=== PATIENT | female | born 1945 | race Caucasian/White ===

== ENCOUNTER 2017-03-27 11:35 | Emergency (ER) | payer SELFPAY ==
[2017-03-27 11:47] LABS: BASOPHILS 0.5 % (0.0-2.0); EOSINOPHILS 0.6 % (0.0-6.0); HEMATOCRIT 35.2 % (36.0-48.0); HEMOGLOBIN 11.4 g/dL (12.0-16.0); LYMPHOCYTES 27.5 % (20.0-40.0); LYMPHOCYTES# 2.1 X 10^3uL (0.8-3.8); MEAN CELL VOLUME 85.8 fL (80.0-100.0); MEAN CORPUS. HGB CONCENTRATION 32.4 g/dL (32.0-36.0); MEAN CORPUSCULAR HEMOGLOBIN 27.8 pg (29.0-35.0); MEAN PLATELET VOLUME 8.8 fL (7.4-10.4); MONOCYTES# 0.7 X 10^3uL (0.2-1.0); NEUTROPHILS 62.4 % (54.0-75.0); NEUTROPHILS# 4.8 X 10^3uL (2.6-6.7); PLATELET COUNT 305 X 10^3uL (130-440); RED CELL DISTRIBUTION WIDTH 13.7 % (11.5-14.5); WHITE BLOOD COUNT 7.6 X 10^3uL (3.9-10.7)
[2017-03-27 11:59] LABS: BLOOD UREA NITROGEN 14 mg/dL (7-17); CALCIUM 10.1 mg/dL (8.4-10.2); CHLORIDE 107 mmol/L (98-107); EST GLOMERULAR FILTRATION RATE > 60 mL/min; GLUCOSE 109 mg/dL (70-100); MAGNESIUM 2.1 mg/dL (1.6-2.3); POTASSIUM 3.9 mmol/L (3.5-5.1); SODIUM 144 mmol/L (137-145)
[2017-03-27 12:12] LABS: TROPONIN I < 0.012 ng/mL (0.00-0.034)
--- NOTE | 2017-03-27 12:20 | RADIOLOGY REPORT ---
History: Chest pain. Comparison: None. Technique: PA and lateral chest radiographs. Findings: The lungs are adequately inflated and clear. The cardiomediastinal silhouette and pulmonary vasculatu re are within normal limits for age. No pleural fluid, pneumothorax, or free air. No significant osse ous abnormality. Impression: Negative chest. Final Electronic Signature: This report was electronically signed by Yung Ramos MD on 03/27/2017 1 2:18 PM. [email or web address] /
--- NOTE | 2017-03-27 14:30 | ER PHYSICIAN DOCUMENTATION ---
Physician Documentation [facility] Name:Kathryn Shelby Age:72 yrs Sex:Female :1945 Arrival Date:03/27/2017 Time:11:35 BedTrauma-B Private MD: Jayson Puckett Disposition: 03/27 14:00 Critical Care: not applicable. tl1 15:00 Chart complete. tl1 Disposition: 03/27/17 13:38 Discharged to Home/Self Care. Impression: Dyspnea, CHF (Congestive Heart Failure). - Condition is Good. - Discharge Instructions: CHF, General, DYSPNEA. - Prescriptions for acetazolamide 250 mg Oral tablet - take 1 tablet by ORAL route 2 times per day; 20 tablet. - Medical Reconciliation form form. - Follow up: Private Physician; When: 7 - 10 days; Reason: Recheck today's complaints, Continuance of care. - Problem is new. - Symptoms have improved. HPI: 11:37 This 71 yrs old Female presents to ER with complaints of Chest Pain > 30 y/o. tl1 11:40 She left home in [place] about 3 weeks ago and has been travelling around the [address] by car and plane. She was well until about 4 days ago in [place], when she first noted some mild dyspnea in [facility]. 2 days ago she drove here, from there, and noted increasing dyspnea on arrival in [place] at that time. Since then she has had progressive dyspnea. No Chest pain, unilateral leg swelling, hemoptysis, f/c/s. Both legs seem symmetrically slightly more swollen than usual. She does have a h/o intermittent A fib, for which she takes Eliquis, but denies any h/o CHF.. Historical: - Allergies: No known drug Allergies; - Home Meds: 1. ELAQUIS 2. Omeprazole Oral 3. Lipitor Oral 4. bisoprolol-hydrochlorothiazide oral - PMHx: ATRIAL FIB; GERD; - Tetanus: unknown. - Ebola Screening: : Patient reports travel to an Ebola-affected area in the 21 days before illness onset. Patient reports to have traveled to . - Immunization history: Flu Vaccine unknown. - Social history: Smoking status: Patient states was never smoker of tobacco. ROS: 11:45 Cardiovascular: Positive for edema, Negative for chest pain, orthopnea, palpitations, tl1 paroxysmal nocturnal dyspnea. 11:45 Respiratory: Positive for shortness of breath, Negative for cough, hemoptysis, orthopnea, pleurisy, sputum production, wheezing. 11:45 Abdomen/GI: Negative for abdominal pain, nausea, vomiting, diarrhea. 11:45 Neuro: Negative for headache, weakness, acute changes. 11:45 All other systems are negative. Exam: 11:45 Constitutional: This is a well developed, well nourished patient who is awake, alert, tl1 and in no acute distress. Head/Face: Normocephalic, atraumatic. Eyes: Pupils equal round and reactive to light, extra-ocular motions intact. Lids and lashes normal. Conjunctiva and sclera are non-icteric and not injected. Cornea within normal limits. Periorbital areas with no swelling, redness, or edema. ENT: Nares patent. No nasal discharge, no septal abnormalities noted. Tympanic membranes are normal and external auditory canals are clear. Oropharynx with no redness, swelling, or masses, exudates, or evidence of obstruction, uvula midline. Mucous membranes moist. 11:45 Neck: Trachea midline, no thyromegaly or masses palpated, and no cervical tl1 lymphadenopathy. Supple, full range of motion without nuchal rigidity, or vertebral point tenderness. No Meningismus. 11:45 Cardiovascular: Rate: normal, Rhythm: regular, Heart sounds: normal, Edema: 1+ edema to level of left midcalf and right midcalf. 11:45 Respiratory: the patient does not display signs of respiratory distress, Respirations: normal, Breath sounds: are normal, clear throughout, no decreased breath sounds, no rales, rhonchi, no stridor, no wheezing. 11:45 Abdomen/GI: Palpation: abdomen is soft and non-tender. 11:45 : CVA tenderness, is absent. 11:45 Skin: Exam negative for acute changes. 11:45 Neuro: Orientation: is normal, Mentation: is normal, Cranial nerves: grossly normal, Motor: moves all fours. 11:45 Psych: Behavior/mood is pleasant, cooperative, Affect is calm, Oriented to person, place, time, Judgement / Insight is normal. Vital Signs: 11:34 BP 147 / 65 (auto/); arc 11:37 BP 147 / 65; Pulse 79; Resp 24; Temp 98.0(O); Pulse Ox 95% on R/A; Weight 85.28 kg; sj Height 5 ft. 9 in. (175.26 cm); Pain 5/10; 11:38 Pulse 83 MON; Resp 27; Pulse Ox 91% ; arc 11:43 Pulse 75 MON; Resp 22; Pulse Ox 96% ; lc 12:08 Pulse Ox 100% ; arc 12:11 BP 130 / 70; Pulse 72; Resp 12; Pulse Ox 99% on 2 lpm NC; Pain 2/10; lc 12:11 BP 130 / 70 (auto/); arc 12:28 Pulse 66 MON; Resp 18; Pulse Ox 100% ; arc 12:30 BP 124 / 66 (auto/); arc 12:58 Pulse 64 MON; Resp 13; Pulse Ox 99% ; arc 13:00 BP 125 / 68 (auto/); arc 13:08 Pulse 65 MON; Resp 21; Pulse Ox 100% ; arc 13:13 Pulse 64 MON; Resp 19; arc 13:34 Pain 1/10; sj 14:19 BP 142 / 78; Pulse 73; Resp 16; Pulse Ox 89% on R/A; arc 14:27 Resp 16; Pulse Ox 92% on R/A; Pain 0/10; lc 11:37 Body Mass Index 27.76 (85.28 kg, 175.26 cm) sj MDM: 11:37 Patient medically screened. tl1 11:59 Response to treatment: There is no appreciated change of the patient's symptoms at this tl1 time, and as a result, I will discharge patient. ED course: No change in her mild symptoms. I told her I thought she could have a touch of CHF, and some effects from the altitude, even, perhaps a touch of altitude sickness. I recommended staying at this altitude and trying some acetazolamide. She was happy with this as she wanted to get on with her vacation with her friends. She was discharged in satisfactory condition, with instructions to return here for any worsening.. 12:07 EKG attached sj 14:00 Differential diagnosis: acute myocardial infarction, acute pericarditis, anxiety, tl1 coronary artery disease congestive heart failure myocarditis, pericarditis, pleurisy, pneumonia, pulmonary embolus, stable angina, unstable angina. The patient was not given aspirin in the Emergency Department. The patient's deep vein thrombosis risk score was calculated as follows:. The patient's pulmonary embolism risk score was calculated as follows: Total Score: 0-2 points. This patient was found to be at low risk for a pulmonary embolism by using the Well's assessment criteria. CHELLY Risk Score: 1 - patient's age is greater or equal to 65 years, TOTAL SCORE = 1. Data reviewed: vital signs, nurses notes, lab test result(s), cardiac enzymes, CBC, electrolytes, hepatic panel, urinalysis, EKG, and as a result, I will discharge patient. 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 Test interpretation: by ED physician or midlevel provider: plain radiologic studies, ECG. Counseling: I had a detailed discussion with the patient and/or guardian regarding: the historical points, exam findings, and any diagnostic results supporting the discharge/admit diagnosis, lab results, radiology results, the need for outpatient follow up, to return to the emergency department if symptoms worsen or persist or if there are any questions or concerns that arise at home. ECG:. 14:18 EKG attached 03/27 12:03 Order name: CBC AUTO DIF, MDIF/RMOR IF IND; Complete Time: 13:37 EDNJ 03/27 13:35 Interpretation: WHITE BLOOD COUNT 7.6; HEMOGLOBIN 11.4; HEMATOCRIT 35.2; PLATELET COUNT tl1 305. 03/27 12:04 Order name: BASIC METABOLIC PANEL; Complete Time: 13:37 EDNJ 03/27 13:35 Interpretation: SODIUM 144; POTASSIUM 3.9; CHLORIDE 107; CARBON DIOXIDE 27; GLUCOSE tl1 109; BLOOD UREA NITROGEN 14; CREATININE 0.8; EST GLOMERULAR FILTRATION RATE > 60; CALCIUM 10.1. 03/27 12:04 Order name: MAGNESIUM; Complete Time: 13:37 EDNJ 03/27 13:35 Interpretation: Normal: MAGNESIUM 2.1. [facility] 03/27 12:07 Order name: DDIMER; Complete Time: 12:18 EDNJ 03/27 13:36 Interpretation: Normal: DDIMER 266. [facility] 03/27 12:13 Order name: BNP,NT-PRO; Complete Time: 13:37 EDNJ 03/27 13:36 Interpretation: Abnormal: BNP,NT-PRO 483. [facility] 03/27 12:13 Order name: TROPONIN I; Complete Time: 13:37 EDNJ 03/27 13:36 Interpretation: Normal: TROPONIN I < 0.012. 1 03/27 12:23 Order name: CXR 2V [id number]; Complete Time: 13:37 EDMS 03/27 13:36 Interpretation: Normal. 1 03/27 11:48 Order name: EKG - 12 Lead; Complete Time: 11:53 [facility] 03/27 11:53 Order name: Oxygen; Complete Time: 14:25 03/27 11:53 Order name: Oxygen Sats; Complete Time: 14:25 03/27 11:53 Order name: Cardiac Monitoring - Continuous; Complete Time: 14:25 EC:59 Rate is 72 beats/min. Rhythm is regular, Normal Sinus Rhythm. QRS [place] is Normal. [place] t[place] [address] msec. QT interval is normal at 394 msec. No Q waves. T waves are Normal. No ST changes noted. Clinical impression: Normal ECG. Interpreted by me. Reviewed by me. Dispensed Medications: No medications were administered Signatures: Dawna Guevara RN RN lc Leigh, Tom, MD MD tl1 [facility]
--- NOTE | 2017-03-27 14:30 | ER NURSING DOCUMENTATION ---
Nurse's Notes [facility] Name:Kathryn Shelby Age:72 yrs Sex:Female :1945 Arrival Date:03/27/2017 Time:11:35 BedTrauma-B Private MD: Diagnosis:Dyspnea;CHF (Congestive Heart Failure) Presentation: 03/27 11:37 Acuity: YESSICA 2 sj 11:41 Presenting complaint: EMS states: SINCE ARRIVAL 3 DAYS AGO, C/O CHEST PRESSURE WITH lc SOB. NO N/V, SWEATING. EDEMA TO LEGS SINCE ARRIVAL ALSO. Transition of care: patient was not received from another setting of care. AIR CAT ACTIVATION no other NA. Asprin Given n/a. Notified ED Physician of patient's arrival and CC. 11:41 Method Of Arrival: EMS: 410 lc Triage Assessment: 11:46 General: Appears in no apparent distress, well groomed, Behavior is appropriate for lc age, cooperative. Pain: Complains of pain in xyphoid area and mid-sternal area Pain does not radiate. Pain At worst was 4 out of 10 on a pain scale. Quality of pain is described as dull, pressure, Pain began 2-3 days ago. Neuro: Level of Consciousness is awake, alert, Oriented to person, place, time, event, Speech is normal. Cardiovascular: Capillary refill < 3 seconds Rhythm is sinus rhythm. Respiratory: Airway is patent Respiratory effort is even, unlabored, Breath sounds are clear bilaterally. GI: Abdomen is non- distended Abd is soft and non tender X 4 quads. Derm: Skin is pink, warm & dry. Historical: - Allergies: No known drug Allergies; - Home Meds: 1. ELAQUIS 2. Omeprazole Oral 3. Lipitor Oral 4. bisoprolol-hydrochlorothiazide oral - PMHx: ATRIAL FIB; GERD; - Tetanus: unknown. - Ebola Screening: : Patient reports travel to an Ebola-affected area in the 21 days before illness onset. Patient reports to have traveled to . - Immunization history: Flu Vaccine unknown. - Social history: Smoking status: Patient states was never smoker of tobacco. Screenin:50 Infectious Disease Risk None. Abuse screen: Denies threats or abuse. Denies injuries lc from another. Nutritional screening: No deficits noted. Assessment: 11:49 See Triage Assessment done by same RN. Pain: Complains of pain in mid-sternal area and lc xyphoid area Pain currently is 4 out of 10 on a pain scale. 12:08 Reassessment: FIRST EKG DONE AT 11:37, NO COPY AVAILABLE, REPEATED. FEELS BETTER ON O2, lc MONITOR IN NSR, VSS. 12:12 Cardiovascular: 2 + EDEMA TO BOTH LEGS. lc 14:26 Reassessment: Patient states feeling better. Patient states symptoms have improved. lc Patient appears in no apparent distress at this time. FEELS READY FOR DC, MONITOR IN NSR DURING ENTIRE ED VISIT. Vital Signs: 11:34 BP 147 / 65 (auto/); arc 11:37 BP 147 / 65; Pulse 79; Resp 24; Temp 98.0(O); Pulse Ox 95% on R/A; Weight 85.28 kg; sj Height 5 ft. 9 in. (175.26 cm); Pain 5/10; 11:38 Pulse 83 MON; Resp 27; Pulse Ox 91% ; arc 11:43 Pulse 75 MON; Resp 22; Pulse Ox 96% ; lc 12:08 Pulse Ox 100% ; arc 12:11 BP 130 / 70; Pulse 72; Resp 12; Pulse Ox 99% on 2 lpm NC; Pain 2/10; lc 12:11 BP 130 / 70 (auto/); arc 12:28 Pulse 66 MON; Resp 18; Pulse Ox 100% ; arc 12:30 BP 124 / 66 (auto/); arc 12:58 Pulse 64 MON; Resp 13; Pulse Ox 99% ; arc 13:00 BP 125 / 68 (auto/); arc 13:08 Pulse 65 MON; Resp 21; Pulse Ox 100% ; arc 13:13 Pulse 64 MON; Resp 19; arc 13:34 Pain 1/10; sj 14:19 BP 142 / 78; Pulse 73; Resp 16; Pulse Ox 89% on R/A; arc 14:27 Resp 16; Pulse Ox 92% on R/A; Pain 0/10; lc 11:37 Body Mass Index 27.76 (85.28 kg, 175.26 cm) ED Course: 11:36 Patient arrived in ED. arc 11:37 Triage completed. sj 11:37 Jayson Jackson MD is Attending Physician. tl1 11:39 Dawna Guevara RN is Primary Nurse. lc 11:50 Valuables Remains with patient Patient has correct armband on for positive lc identification. Placed in gown. Bed in low position. Call light in reach. Side rails up X2. supervisor shipping room on. Pulse ox on. NIBP on. 11:50 Maintain field IV. Dressing intact. Good blood return noted. Site clean & dry. Gauge & lc site: 20G TO R HAND. Oxygen Oxygen administration via nasal cannula @ 2L/min. 11:51 Labs drawn. (by ED staff). Sent per order to lab. 11:59 EKG done. (by ED staff). Reviewed by Jayson Jackson MD. lc 12:00 Patient moved to radiology. justo 12:00 Patient moved back from radiology. justo 12:07 EKG attached sj 14:18 EKG attached sj 14:20 Discontinued IV. arc Administered Medications: No medications were administered Outcome: 13:38 Discharge ordered by . tl1 14:27 Discharged to home ambulatory, with friend. 14:27 Condition: stable 14:27 Discharge Assessment: Patient awake, alert and oriented x 3. No cognitive and/or functional deficits noted. Patient verbalized understanding of disposition instructions. 14:27 Discharge instructions given to patient, Instructed on discharge instructions, follow up and referral plans. medication usage, Demonstrated understanding of instructions, medications, Prescriptions given X 1, FX'D TO PHARMACY 14:29 Patient left the ED. lc Signatures: Dawna Guevara, Carol Branch RN, Philisha 1 Jayson Jackson MD MD tl1 Rita Hernandez, Reg Qing Hollins
== END 2017-03-27 14:29 | disposition home or self-care (01) ==
LOC: EDBD → ER 11:35
DX: R06.00 Dyspnea, unspecified (principal); I50.20 Unspecified systolic (congestive) heart failure; R60.0 Localized edema; R06.02 Shortness of breath; I48.0 Paroxysmal atrial fibrillation; Z79.01 Long term (current) use of anticoagulants; Z79.899 Other long term (current) drug therapy; Z99.89 Dependence on other enabling machines and devices; Z74.3 Need for continuous supervision
CPT/HCPCS: 71020; 80048; 83735; 83880; 84484; 85025; 85379; 93005; 99285; A0425; A0427

== ENCOUNTER 2017-03-27 17:48 | Emergency (ER) | payer SELFPAY ==
[2017-03-27] MEDS ORDERED: ONDANSETRON HCL 4 MG/2 ML VIAL ONE (19:23)
[2017-03-27] MEDS ORDERED: ACETAMINOPHEN 325 MG TABLET PO ONE (19:38)
--- NOTE | 2017-03-27 20:04 | ER PHYSICIAN DOCUMENTATION ---
Physician Documentation [facility] Name:Kathryn Shelby Age:72 yrs Sex:Female :1945 Arrival Date:03/27/2017 Time:17:48 Bed4 Private MD: Jayson Puckett Disposition: 03/27 20:24 Critical Care: not applicable. Chart complete. tl1 Disposition: 03/27/17 18:48 Transfer ordered to [facility]. Diagnosis are Dyspnea, Chest Pain. - Reason for transfer: Higher level of care. - Accepting physician is Teofilo Rapp. - Condition is Good. - Problem is new. - Symptoms are unchanged. COBRA Form completed? Yes Transfer - Mode of Transportation Ambulance HPI: 17:55 This 72 yrs old Female presents to ER via Private Vehicle with complaints of tl1 Shortness Of Breath. 17:55 She was d/c'd from here today about 1430. She presented about noon with dyspnea and a tl1 vague chest discomfort. I thought she might have just a bit of CHF, +/- some altitude illness and prescribed diamox. See her prior chart for details. She returns now to the ED complaining of shaking chills, with some anxiety and dyspnea, without subsequent sweats, that came on abruptly about 45 min after taking her diamox. She felt quite ill with that and now returns for evaluation. She denies cough. She felt warm, but has not taken her temperature. She now relates multiple periods of intermittent chest pressure, associated at times with a vague left shoulder discomfort, that have been worth with exertion and some lasting as long as 30 minutes, over the last 4-5 days. No foreign travel. No risk. factors for PE except for long trips in cars and planes over the last several weeks.. Historical: - Allergies: No known drug Allergies; - Home Meds: 1. ELAQUIS 2. Omeprazole Oral 3. Lipitor Oral 4. bisoprolol-hydrochlorothiazide oral - PMHx: ATRIAL FIB; GERD; Dyspnea (March 27, 2017); CHF (Congestive Heart Failure)(March 27, 2017); - PSHx: Hysterectomy; Cholecysectomy; - Tetanus: < 10 years. - Ebola Screening: : No symptoms or risks identified at this time. . - Immunization history: Pneumococcal vaccine is up to date, Flu Vaccine < 1 year. - Social history: Smoking status: Patient states was never smoker of tobacco. ROS: 18:30 Respiratory: Positive for shortness of breath, Negative for cough, dyspnea on exertion, tl1 hemoptysis, orthopnea, pleurisy, sputum production, wheezing. 18:30 All other systems are negative. Exam: 18:30 Constitutional: The patient appears in no acute distress, alert, awake, well developed, tl1 well hydrated, well groomed, well nourished, in obvious distress, mildly distressed, feeling chilled, covered up in multiple blankets. 18:30 Head/face: Exam is negative for acute changes. 18:30 Eyes: Exam is negative for acute changes, Pupils: equal, round, and reactive to light and accomodation. 18:30 ENT: Exam is negative for acute changes. 18:30 Neck: ROM/movement: is normal, is supple. 18:30 Cardiovascular: Rate: tachycardic, Rhythm: regular, Heart sounds: normal, Edema: 1+ edema to level of left midcalf and right midcalf, JVD: is not appreciated. 18:30 Respiratory: the patient does not display signs of respiratory distress, Respirations: normal, Breath sounds: are normal, no decreased breath sounds, no rales, rhonchi, no stridor, no wheezing. 18:30 Abdomen/GI: Inspection: abdomen appears normal, Palpation: abdomen is soft and non-tender. 18:30 : CVA tenderness, is absent. 18:30 Skin: Exam negative for 18:30 Neuro: Exam negative for acute changes. Vital Signs: 17:55 BP 161 / 78; Pulse 110; Resp 24; Temp 98.5(O); Pulse Ox 87% on 2 lpm NC; Weight 68.04 arc kg; Height 5 ft. 9 in. (175.26 cm) (R); 18:55 BP 158 / 70; Pulse 103; Resp 18; Pulse Ox 97% on 2 lpm NC; Pain 0/10; lc 19:20 BP 130 / 56; Pulse 100; Resp 18; Temp 102; Pulse Ox 91% on 2 lpm NC; Pain 0/10; lc 17:55 Body Mass Index 22.15 (68.04 kg, 175.26 cm) arc MDM: 17:54 Patient medically screened. tl1 18:31 Response to treatment: There is no appreciated change of the patient's symptoms at this tl1 time, and as a result, I will admit patient. Physician consultation: Teofilo Rapp was called at 18:40, was contacted at 18:45, regarding patient's condition, after a discussion of the case, a recommendation for transfer for higher level of care is made. Special discussion: this is her second visit here today, and she feels worse, with worsening vital signs. I was initially concerned about the possibility of an ACS, but this is starting to look more infectious. I told her I thought she needed to be admitted to a hospital where she can get a higher level of care, and more sophisticated testing than we can offer her here. I spoke with Dr Rapp, at [facility], who kindly accepted her in transfer for further evaluation.. ED course: She is hypoxic now, tachycardic,and febrile, which she was not, earlier. Blood cultures were done. Troponin was repeated and negative. Flu swab was negative.. 19:00 Differential diagnosis: Anxiety Reaction CHF exacerbation, Myocardial Infarction tl1 pneumonia, pulmonary edema, Pulmonary Embolism Sepsis. Antibiotic administration: Not indicated. The patient's pulmonary embolism risk score was calculated as follows: No Risks (0 Pts). Data reviewed: vital signs, nurses notes, lab test result(s), cardiac enzymes, flu swab, troponin, EKG, and as a result, I will *Transfer Patient. 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 Test interpretation: by ED physician or midlevel provider: ECG. Counseling: I had a detailed discussion with the patient and/or guardian regarding: the historical points, exam findings, and any diagnostic results supporting the discharge/admit diagnosis, lab results, radiology results, the need to transfer to another facility, for higher level of care. ECG:. 03/27 19:15 Order name: TROPONIN I [facility] 03/27 20:08 Order name: INFLUENZA A/B [facility] 03/28 19:56 Order name: BLOOD CULTURE [facility] 03/28 19:56 Order name: BLOOD CULTURE [facility] 03/27 18:04 Order name: Oxygen; Complete Time: 18:04 lc EC:31 Rate is 99 beats/min. Rhythm is regular, Normal Sinus Rhythm. QRS [place] is Normal. QRS tl1 is positive in leads I, II, aVL, aVF, V5, V6. MT interval is normal at 202 msec. QRS interval is normal at 77 msec. QT interval is normal at 348 msec. No Q waves. T waves are Normal. No ST changes noted. Clinical impression: Normal ECG. Interpreted by me. Reviewed by me. Dispensed Medications: 19:25 Drug: Tylenol 975 mg; Route: PO; lc 19:49 Follow up: Response: No adverse reaction lc Signatures: Dawna Guevara RN RN Jayson Cho MD MD tl1
--- NOTE | 2017-03-27 20:04 | ER NURSING DOCUMENTATION ---
Nurse's Notes [facility] Name:Kathryn Shelby Age:72 yrs Sex:Female :1945 Arrival Date:03/27/2017 Time:17:48 Bed4 Private MD: Diagnosis:Dyspnea;Chest Pain Presentation: 03/27 17:58 Presenting complaint: Patient states: SEEN EARLIER IN ED. WENT HOME AND TOOK A DIAMOX, lc 1 HR LATER C/O SHAKING, CHILLS AND SOB. NO CHEST PAIN. Transition of care: patient was not received from another setting of care. Notified ED Physician of patient's arrival and CC. 17:58 Acuity: YESSICA 3 lc 17:58 Method Of Arrival: Private Vehicle Triage Assessment: 18:00 General: Appears distressed, Behavior is anxious, cooperative. Pain: Denies pain. lc Neuro: Level of Consciousness is awake, alert, Oriented to person, place, time, event. Cardiovascular: Rhythm is sinus rhythm. Respiratory: Airway is patent Respiratory effort is even, unlabored, Respiratory pattern is regular, symmetrical, Breath sounds are diminished bilaterally. Reports shortness of breath air hunger since 1 HR Onset: The symptoms/episode began/occurred just prior to arrival, the patient has moderate shortness of breath. Derm: Skin is pink, warm & dry. Historical: - Allergies: No known drug Allergies; - Home Meds: 1. ELAQUIS 2. Omeprazole Oral 3. Lipitor Oral 4. bisoprolol-hydrochlorothiazide oral - PMHx: ATRIAL FIB; GERD; Dyspnea (March 27, 2017); CHF (Congestive Heart Failure)(March 27, 2017); - PSHx: Hysterectomy; Cholecysectomy; - Tetanus: < 10 years. - Ebola Screening: : No symptoms or risks identified at this time. . - Immunization history: Pneumococcal vaccine is up to date, Flu Vaccine < 1 year. - Social history: Smoking status: Patient states was never smoker of tobacco. Screenin:03 Infectious Disease Risk None. Abuse screen: Denies threats or abuse. Denies injuries lc from another. Nutritional screening: No deficits noted. Assessment: 18:03 See Triage Assessment done by same RN. lc 18:57 Reassessment: Patient denies pain at this time. Patient states feeling better. Patient lc appears in no apparent distress at this time. DECISION MADE FOR TRANSFER, ARRANGED, FRIENDS AT BEDSIDE. 19:29 Reassessment: GOT UP TO BR, NO DYSURIA SYMPTOMS, C/O SEVERE CHILLS, TEMP NOW 102, MD johns NOTIFIED, MEDICATED AND BLOOD CULTURES DRAWN. READY FOR TRANSFER NOW.. Vital Signs: 17:55 BP 161 / 78; Pulse 110; Resp 24; Temp 98.5(O); Pulse Ox 87% on 2 lpm NC; Weight 68.04 arc kg; Height 5 ft. 9 in. (175.26 cm) (R); 18:55 BP 158 / 70; Pulse 103; Resp 18; Pulse Ox 97% on 2 lpm NC; Pain 0/10; lc 19:20 BP 130 / 56; Pulse 100; Resp 18; Temp 102; Pulse Ox 91% on 2 lpm NC; Pain 0/10; lc 17:55 Body Mass Index 22.15 (68.04 kg, 175.26 cm) arc ED Course: 17:51 Patient arrived in ED. jt 17:54 Jayson Jackson MD is Attending Physician. tl1 17:57 Dawna Guevara, BARRY is Primary Nurse. lc 17:59 Triage completed. lc 18:03 Valuables Remains with patient Patient has correct armband on for positive lc identification. Placed in gown. Bed in low position. Call light in reach. Cardiac Monitoring On for Nurse Monitoring only. Pulse Ox - RN Monitoring Only NIBP On - RN Monitoring Only. 18:04 Oxygen Oxygen administration via nasal cannula @ 2L/min. lc 18:05 Warm blanket given. lc 18:31 EKG done. (by ED staff). Reviewed by Jayson Jackson MD. lc 18:43 Inserted peripheral IV: 20 gauge in left antecubital area and blood collected. lp 19:29 First set of blood cultures drawn Second set of blood cultures drawn by hi. lc Administered Medications: 19:25 Drug: Tylenol 975 mg; Route: PO; lc 19:49 Follow up: Response: No adverse reaction Outcome: 18:48 ER care complete, transfer ordered by . tl1 20:02 [facility] Time: March 27, 2017 at 18:45 Patient's face sheet was faxed to accepting facility. Face Sheet included patient's name, address, age, gender, contact information and insurance information. Patient will be transported by: [facility] ground. Report called to: MARY ANN REDDY Nurse and Physician Charting and Notes were sent to Accepting Facility. All tests and/or procedures with results, if applicable, were sent to accepting facility. 20:02 Condition: stable 20:02 Instructed on need for transfer 20:04 Patient left the ED. Signatures: Dawna Guevara RN RN lc Pavlish, Lena, RN RN lp Leigh, Tom, MD MD tl1 Rita Hernandez, Isabel Ramos
== END 2017-03-27 20:04 | disposition short-term general hospital (02) ==
LOC: EDBD 17:48 → ER 17:48
DX: R06.00 Dyspnea, unspecified (principal); R07.89 Other chest pain; R09.02 Hypoxemia; M79.622 Pain in left upper arm; R06.02 Shortness of breath; R50.9 Fever, unspecified; R60.0 Localized edema; R00.0 Tachycardia, unspecified; Z99.81 Dependence on supplemental oxygen; Z74.3 Need for continuous supervision; I48.0 Paroxysmal atrial fibrillation; Z79.01 Long term (current) use of anticoagulants; Z79.899 Other long term (current) drug therapy
CPT/HCPCS: 87040; 87449; 93005; 99285; A0425; A0429; J2405